=== PATIENT | male | born 1995 | race Two or more races ===

== ENCOUNTER 2023-12-28 18:14 | Emergency (ER) | payer MEDICAID, OTHER ==
[~2023-12-28] VITALS: Ht 182.9 cm; Wt 84.9 kg
[2023-12-28 18:23] VITALS: BP 133/73; PULSE 94; RESP 18; TEMP 99.1; O2SAT 99
[2023-12-28] MEDS ORDERED: CYCL-611 PO (20:08)
[2023-12-28] MEDS ORDERED: ZOFR4T PO (20:08)
[2023-12-28] MEDS ORDERED: HYDR-4902 PO (20:08)
[2023-12-28] MEDS ORDERED: IBUP-1456 PO (20:11)
[2023-12-28] MEDS: PROCHLORPERAZINE EDISYLATE 5 MG/ML 2ML VIAL IM ONE (21:17)
[2023-12-28] MEDS: DexAMETHasone 4 MG TAB PO ONE (21:18)
[2023-12-28] MEDS: HYDROcodone-ACET 5/325MG TAB PO ONE (21:18)
[2023-12-28] MEDS: KETOROLAC TROMETH 60MG/2ML VIAL IM ONE (21:18)
== END 2023-12-28 21:39 | disposition home or self-care (01) ==
LOC: ER 18:14
DX: M62.838 Other muscle spasm (principal); R51.9 Headache, unspecified
CPT/HCPCS: 70450; 72125; 96372; 99285; J0780; J1885; J8540

== ENCOUNTER 2025-10-20 11:22 | Emergency (ER) | payer MEDICAID ==
[~2025-10-20] VITALS: Ht 182.9 cm; Wt 82.5 kg
[~2025-10-20 11:22] MED LIST: CYCL-611 PO; HYDR-4902 PO; IBUP-1456 PO; ZOFR4T PO
--- NOTE | 2025-10-20 11:57 | ED.PDOC ---
General HPI Comments 30 year old male presents to the ED with a chief complaint of testicular pain onset 1 month. Patient states he has been experiencing RT testicle pain and swelling for the past month, noticed a lump on RT testicle. Denies dysuria, hematuria, penile discharge, trauma, injury, fever, chills, nausea, vomiting,abdominal pain. No other symptoms or modifying factors present at this time. Chief Complaint: Testicle Pain Time Seen by MD: 11:45 Primary Care Provider: UNKNOWN Reviewed notes: Medications, Allergies Allergies: Coded Allergies: NO KNOWN ALLERGIES (Unverified , 04/10/10) Home Meds Active Scripts Ibuprofen (Ibuprofen) 800 Mg Tab, 1 TAB PO TID, #30 TAB 1 Refill As needed for mild to moderate Prov:DAVID BEDOLLA SPEEDBOAT OPERATOR 12/28/23 Ondansetron Odt 4MG Tab (ZOFRAN PO) 4 Mg Tb, 1 TAB PO Q8HPRN PRN, #10 TAB As needed for nausea vomit ODT TAB-DISSOLVE IN MOUTH, THEN SWALLOW Prov:DAVID BEDOLLA SPEEDBOAT OPERATOR 12/28/23 Cyclobenzaprine HCl (Cyclobenzaprine Hydrochlo) 10 Mg Tab, 1 TAB PO Q8HPRN PRN, #15 TAB As needed for muscle spasm Prov:DAVID BEDOLLA SPEEDBOAT OPERATOR 12/28/23 Hydrocodone-Acetaminophen (Hydrocodone Bitartrate/AC 5-325 mg) 1 Tab Tab, 1 TAB PO Q6HR, #10 TAB Prov:DAVID BEDOLLA SPEEDBOAT OPERATOR 12/28/23 Information Source: Patient Mode of Arrival: Ambulatory Severity: Moderate Timing: Months Duration: Since onset Prehospital treatment: None Onset: Spontaneous Symptoms: Other History of: None Location male: R Scrotum Penile discharge: None Modifying factors: None associated signs and symptoms: Other Past Medical History PAST MEDICAL HISTORY: Denies Surgical History: Denies all surgeries Family History Family History: Reviewed,noncontributory to illness, No family hx of Cancer, No family hx of DM, No family hx of Heart korin, No family hx of HTN, No family hx ofKidney korin, No family hx of Liver korin, No family hx of Lung korin, No family hx of Stroke Social History Smoker: Non-Smoker Alcohol: Denies ETOH Use Drugs: Denies Drug Use Lives In: Home Constitutional: denies: chills, diaphoresis, fatigue, fever, malaise, sweats, weakness, others EENTM: denies: blurred vision, double vision, ear bleeding, ear discharge, ear drainage, ear pain, ear ringing, eye pain, eye redness, hearing loss, mouth pain, mouth swelling, nasal discharge, nose bleeding, nose congestion, nose pain, photophobia, tearing, throat pain, throat swelling, voice changes, others Respiratory: denies: cough, hemoptysis, orthopnea, SOB at rest, shortness of breath, SOB with excertion, stridor, wheezing, others Cardiovascular: denies: chest pain, dizzy spells, diaphoresis, Dyspnea on exertion, edema, irregular heart beat, left arm pain, lightheadedness, palpitations, PND, syncope, others Gastrointestinal: denies: abdomen distended, abdominal pain, blood streaked bowels, constipated, diarrhea, dysphagia, difficulty swallowing, hematemesis, melena, nausea, poor appetite, poor fluid intake, rectal bleeding, rectal pain, vomiting, others Genitourinary: reports: testicle pain, testicle swelling; denies: burning, dysuria, flank pain, frequency, hematuria, incontinence, penile discharge, penile sore, pain, urgency, others Neurological: denies: dizziness, fainting, headache, left sided numbness, left sided weakness, numbness, paresthesia, pre-existing deficit, right sided numbness, right sided weakness, seizure, speech problems, tingling, tremors, weakness, others Musculoskeletal: denies: back pain, gout, joint pain, joint swelling, muscle pain, muscle stiffness, neck pain, others Integumetry: denies: bruises, change in color, change in hair/nails, dryness, laceration, lesions, lumps, rash, wounds, others Allergic/Immunocompromised: denies: Difficulty Healing, Frequent Infections, Hives, Itching, others Hematologic/Lymphatic: denies: anemia, blood clots, easy bleeding, easy bruising, swollen glands, others Endocrine: denies: excessive hunger, excessive sweating, excessive thirst, excessive urination, flushing, intolerance to cold, intolerance to heat, unexplained weight gain, unexplained weight loss, others Psychiatric: denies: anxiety, bipolar disorder, depression, hopeless, panic disorder, schizophrenia, sleepless, suicidal, others All Other Systems: Reviewed and Negative Physical Exam General Appearance: Normal HEENT: Normal ENT Inspection, Pharynx Normal, TMs Normal Neck: Full Range of Motion, Non-Tender, Normal, Normal Inspection Respiratory: Chest Non-Tender, Lungs Clear, No Accessory Muscle Use, No Respiratory Distress, Normal Breath Sounds Cardiovascular: No Edema, No JVD, No Murmur, No Gallop, Normal Peripheral Pulses, Regular Rate/Rhythm Breast Exam: Deferred Gastrointestinal: No Organomegaly, Non Tender, No Pulsatile Mass, Normal Bowel Sounds, Soft Genitalia: Deferred Pelvic: Deferred Rectal: Deferred Extremities: No calf tenderness, Normal capillary refill, Normal inspection, Normal range of motion, Non-tender, No pedal edema Musculoskeletal : Apperance: Normal Neurologic: Alert, architect in training II-XII nml as Tested, No Motor Deficits, Normal Affect, Normal Mood, No Sensory Deficits Cerebellar Function: Normal Reflexes: Normal Skin: Dry, Normal Color, Warm Lymphatic: No Adenopathy Was a procedure done? Was a procedure done?: No Differential Diagnosis Kidney stone (Female): N/A Penile/Scrotal: Epidiymitis, UTI, Testicular Torsion X-Ray, Labs, Meds, VS Vital Signs Date Time Temp Pulse Resp B/P (MAP) Pulse Ox O2 Delivery O2 Flow Rate FiO2 10/20/25 13:17 98.4 77 18 149/89 (109) 96 98.4 10/20/25 11:24 97.7 88 16 126/70 100 97.7 [place] [id number] Ph: [phone] DIAGNOSTIC IMAGING Diagnostic Imaging Report : [id number] Signed PATIENT: NICK SYACCT: [id number] UNIT: [id number] : 1995 LOC: ER ROOM / BED: / AGE / SEX: 30 / M ADM STATUS: REG ER SERVICE 1147 ORDERING PHYSICIAN: VICKIE BRYAN MD PROCEDURE(s): TESUS - TESTICULAR ULTRASOUND REASON: testicle pain ORDER NUMBER(s): [id number], ACCESSION NUMBER(s): [id number] ULTRASOUND OF SCROTUM AND CONTENTS. INDICATION: testicle pain COMPARISON: None TECHNIQUE: Multiple real-time grayscale sonographic and color and duplex Doppler images of the scrotum and its contents were obtained. FINDINGS: RIGHT TESTICLE: Measures 0.4 X 2.5 X 3.2 cm. VOLUME OF THE RIGHT TESTICLE IS 18.3 ML. SMALL RIGHT EPIDIDYMAL CYST MEASURING 4 X 4 X 5 MM Pedunculated echogenic structure attached to the right epididymis may represent appendix testes. LEFT TESTICLE: Measures 4.2 X 2.5 X 2.8 cm. VOLUME OF THE LEFT TESTICLES 15 ML Both testicles demonstrate homogeneous echotexture without evidence of focal lesions. The right epididymal head measures 1.5 cm. The left epididymal head measures 1.3 cm. Subsequent color and duplex Doppler interrogation of the testes demonstrated symmetric normal vascular flow to both testicles. NO focal areas of hyperemia were seen. IMPRESSION: 1. No evidence of torsion, epididymitis, and/or orchitis. 2. Small right epididymal cyst measuring 4 x 4 x 5 mm 3. Right testicle measures 4.4 cm long. Left testicle measures 4.2 cm long. ATED BY: SAMRA CASTRO Jr., DO DICTATED DATE/TIME: 10/20/25 1248 SIGNED BY: SAMRA CASTRO Jr., SIGNED DATE/TIME: 10/20/25 1248 CC: Time of 1ST Reevaluation: 12:15 Reevaluation 1ST: Unchanged Patient Education/Counseling: Diagnosis, Treatment, Prognosis Family Education/Counseling: No Family Present SEPSIS Sepsis Screen Date sepsis recognized/suspect: Oct 20, 2025 Time Sepsis recognized/suspect: 1128 Recent Procedure: No On Antibiotic Therapy: No Respiratory Rate >20: No Heart Rate >90: No Temp<36 C (96.8 F) or >38.3 C: No SBP <90 or MAP <65 mmHG: No New Acute Mental Status Change: No Is the patient on CPAP, BIPAP,: No Physician Orders Urinalysis (10/20/25 11:47) Testicular Ultrasound (10/20/25 11:47) Vital Signs Date Time Temp Pulse Resp B/P (MAP) Pulse Ox O2 Delivery O2 Flow Rate FiO2 10/20/25 13:17 98.4 77 18 149/89 (109) 96 98.4 10/20/25 11:24 97.7 88 16 126/70 100 97.7 Departure 1 Departure Time of Disposition: 13:49 (Patient likely has a epididymitis and epididymal cysts. We will discharge patient with antibiotics and outpatient follow up) Impression: Primary Impression: Epididymal cyst Additional Impression: Epididymitis Disposition: HOME / SELF CARE / HOMELESS Condition: Stable Referrals: DANNY CALLE MD Additional Instructions: You have an epididymal cyst. You were prescribed antibiotics. Please take as directed. You were referred to Urology via ensure that everything resolves. Please call for an appointment For pain you can take the followinam: Ibuprofen 400mg with food Noon: Acetaminophen 1000mg 4pm: Ibuprofen 400mg with food 8pm: Acetaminophen 1000mg You should follow up with your regular doctor within one week to ensure you are doing better. If your symptoms worsen or you have any other concerns then please return to the ER. e-Prescriptions Levofloxacin Hemihydrate (LEVAQUIN 500 MG) 500 Mg Tab 750 MG PO DAILY for 5 Days, #8 TAB Prov: VICKIE BRYAN MD 10/20/25 Discharged With: Self Critical Care Note Critical Care Time?: No Stability Stability form required: No Heart Score Heart Score: Heart Score Response (Comments) Value History N/A 0 EKG N/A 0 Age N/A 0 Risk Factors N/A 0 Troponin N/A 0 Total 0 I personally scribed for VICKIE BRYAN MD ([email or web address]) on 10/20/25 at 11:57. Electronically submitted by Yue Wang ([email or web address]). I personally scribed for VICKIE BRYAN MD ([email or web address]) on 10/20/25 at 13:38. Electronically submitted by Yue Wang ([email or web address]). VICKIE BRYAN MD Oct 20, 2025 11:57
--- NOTE | 2025-10-20 12:50 | DVH ---
ULTRASOUND OF SCROTUM AND CONTENTS. INDICATION: testicle pain COMPARISON: None TECHNIQUE: Multiple real-time grayscale sonographic and color and duplex Doppler images of the scrotum and its contents were obtained. FINDINGS: RIGHT TESTICLE: Measures 0.4 X 2.5 X 3.2 cm. VOLUME OF THE RIGHT TESTICLE IS 18.3 ML. SMALL RIGHT EPIDIDYMAL CYST MEASURING 4 X 4 X 5 MM Pedunculated echogenic structure attached to the right epididymis may represent appendix testes. LEFT TESTICLE: Measures 4.2 X 2.5 X 2.8 cm. VOLUME OF THE LEFT TESTICLES 15 ML Both testicles demonstrate homogeneous echotexture without evidence of focal lesions. The right epididymal head measures 1.5 cm. The left epididymal head measures 1.3 cm. Subsequent color and duplex Doppler interrogation of the testes demonstrated symmetric normal vascular flow to both testicles. NO focal areas of hyperemia were seen. IMPRESSION: 1. No evidence of torsion, epididymitis, and/or orchitis. 2. Small right epididymal cyst measuring 4 x 4 x 5 mm 3. Right testicle measures 4.4 cm long. Left testicle measures 4.2 cm long.
[2025-10-20 13:17] VITALS: BP 149/89; PULSE 77; RESP 18; TEMP 98.4; O2SAT 96
[2025-10-20] MEDS ORDERED: LEVO500T91 PO (13:56)
[2025-10-20 14:12] LABS: Urine Protein, UAD Negative (Negative)
[2025-10-20] MEDS ORDERED: LEVO750T40 PO (14:58)
== END 2025-10-20 14:12 | disposition home or self-care (01) ==
LOC: ER 11:22
DX: N50.3 Cyst of epididymis (principal); N45.1 Epididymitis; Z79.899 Other long term (current) drug therapy
CPT/HCPCS: 76870; 81001